=== PATIENT | female | born 1990 | race Caucasian/White ===

== ENCOUNTER 2021-11-29 10:26 | Outpatient (CLI) | payer BC, SELFPAY ==
[2021-11-29 10:45] VITALS: BP 128/93; PULSE 87
[2021-11-29 11:00] VITALS: BP 128/96; PULSE 78
[2021-11-29 11:29] LABS: Basophils Percent Auto 0.3 % (0.2-1.2); Eosinophils Absolute Auto 0.1 K/mm3 (0-0.3); Eosinophils Percent Auto 0.7 % (0-4.4); Hematocrit 35.4 % (37.0-47.0); Hemoglobin 11.1 g/dL (12.0-15.0); Immature Granulocyte Absolute 0.07 K/mm3 (0.00-0.031); Immature Granulocyte Percent A 0.6 % (0-0.5); Lymphocytes Absolute Auto 1.61 K/mm3 (0.9-3.2); Mean Corpuscular HGB Conc 31.4 g/dl (32-36); Mean Corpuscular Volume 79.7 fl (80-100); Mean Platelet Volume 10.3 fl (7.4-10.4); Monocytes Absolute Auto 0.8 K/mm3 (0.1-0.6); Monocytes Percent Auto 6.5 % (2.6-8.5); Neutrophils Absolute Auto 8.9 K/mm3 (1.3-6.7); Neutrophils Percent Auto 77.9 % (45.5-73.1); Platelet Count Result 284 k/mm3 (150-375); Red Blood Count 4.44 M/mm3 (4.2-5.4); Red Cell Distribution Width 13.6 % (11.5-14.5); White Blood Count 11.5 K/mm3 (4.5-10.0)
[2021-11-29 11:30] VITALS: BP 127/94; PULSE 86
[2021-11-29 11:31] LABS: Appearance Urine Clear (Clear); Bilirubin Urine Negative (Negative); Blood Urine Negative (Negative); Color Urine Yellow (Yellow); Glucose Urine UA Negative (Negative); Ketones Urine Negative (Negative); Leukocyte Esterase Ur Negative LEU/UL (NEGATIVE); Nitrate Urine Negative (Negative); Protein Urine Negative (Negative); Specific Grav Ur 1.015 (1.001-1.035); Urobilinogen Urine 0.2 mg/dL (<2.0)
[2021-11-29 11:34] LABS: Add Urine Microscopic? NO
[2021-11-29 11:40] LABS: Creatinine Urine 65.6 mg/dL; Total Protein Urine Random 15 mg/dL; Ur Ttl Prot Creatinine Ratio 0.23 mg/mg (0-0.20)
[2021-11-29 11:41] LABS: Alanine Aminotransferase 18 U/L (6-35); Albumin Level 3.6 g/dL (3.5-5.1); Alkaline Phosphatase 192 U/L (38-126); Anion Gap 8 mmol/L (8-16); Aspartate Amino Transferase 29 U/L (14-36); Bilirubin,Total 0.2 mg/dL (0.2-1.3); Blood Urea Nitrogen 12 mg/dL (7-17); Calcium 8.8 mg/dL (8.4-10.2); Carbon Dioxide 22 mmol/L (22-30); Chloride 102 mmol/L (98-107); Estimated Glomerular Filt Rate > 60; Glucose 90 mg/dL (65-110); Potassium 4.1 mmol/L (3.4-5.0); Sodium 132 mmol/L (137-145); Uric Acid 3.2 mg/dL (2.5-7.5)
[2021-11-29 11:45] VITALS: BP 128/90; PULSE 79
[2021-11-29 12:00] VITALS: BP 126/94; PULSE 85
--- NOTE | 2021-11-29 12:12 | PC.NURSE ---
Dr Pelletier notified of NST, lab results and BP's. OK to dc home and keep next appt.
[2021-11-29 12:14] VITALS: BP 128/93; PULSE 100
== END 2021-11-29 12:14 | disposition home or self-care (01) ==
LOC: ANHOBOP 10:32 → ANHOBPP 10:35
PROVIDERS: Visit Provider Obstetrics & Gynecology
DX: O13.9 Gestational [pregnancy-induced] hypertension without significant proteinuria, unspecified trimester (principal); Z3A.00 Weeks of gestation of pregnancy not specified
CPT/HCPCS: 36415; 59025; 80053; 81003; 82570; 84156; 84550; 85025; 87086; 99199

== ENCOUNTER 2021-12-05 07:30 | Inpatient (IN) | payer BC, SELFPAY ==
[2021-12-05] VITALS (102 sets, daily range): BP systolic 115–159; BP diastolic 67–125; PULSE 62–99; RESP 18; TEMP 36.6–37.5; O2SAT 75–100; BMI 30.6
--- NOTE | 2021-12-05 08:30 | LDADM ---
This patient, Nadine Ramirez, was admitted to Labor/Delivery/Recovery 106 on 12/05/21 at 07:30. Plans for labor, pain management and were discussed with patient. Patient/family oriented to hospital policies and general routines including ID bracelet, bed and alarms, visiting hours, pain management, procedures, bathroom and other care routines, personal items, smoking policy, room service/diet and guest tray routines, infant security routines, and visiting hours. Patient/Family are encouraged to report perceived risks to care and to ask questions if they do not understand what they are told or what they should do. See OBIX for further documentation.
[2021-12-05 08:53] LABS: Basophils Percent Auto 0.3 % (0.2-1.2); Eosinophils Absolute Auto 0.1 K/mm3 (0-0.3); Eosinophils Percent Auto 0.9 % (0-4.4); Hematocrit 37.7 % (37.0-47.0); Hemoglobin 11.8 g/dL (12.0-15.0); Immature Granulocyte Absolute 0.07 K/mm3 (0.00-0.031); Immature Granulocyte Percent A 0.6 % (0-0.5); Lymphocytes Absolute Auto 2.01 K/mm3 (0.9-3.2); Lymphocytes Percent Auto 16.4 % (18.3-44.2); Mean Corpuscular HGB Conc 31.3 g/dl (32-36); Mean Corpuscular Hemoglobin 24.7 pg (26-34); Mean Platelet Volume 10.8 fl (7.4-10.4); Monocytes Absolute Auto 0.9 K/mm3 (0.1-0.6); Monocytes Percent Auto 7.1 % (2.6-8.5); Neutrophils Absolute Auto 9.2 K/mm3 (1.3-6.7); Neutrophils Percent Auto 74.7 % (45.5-73.1); Platelet Count Result 295 k/mm3 (150-375); Red Blood Count 4.77 M/mm3 (4.2-5.4); White Blood Count 12.3 K/mm3 (4.5-10.0)
[2021-12-05] MEDS: OXYTOCIN 30 UNITS/NS 500 ML 30 UNITS/500 ML BAG 6 UNITS IV CONT (09:08)
[2021-12-05] MEDS: LACTATED RINGERS 1,000 ML 125 ML IV CONT ×2 (09:08→10:47)
[2021-12-05] MEDS: AMPICILLIN 2 GM/NS 100 ML 2 GM/100 ML BAG IVPB (09:08)
[2021-12-05 09:48] LABS: Alanine Aminotransferase 16 U/L (6-35); Albumin Level 3.6 g/dL (3.5-5.1); Alkaline Phosphatase 219 U/L (38-126); Anion Gap 9 mmol/L (8-16); Aspartate Amino Transferase 29 U/L (14-36); Bilirubin,Total 0.2 mg/dL (0.2-1.3); Blood Urea Nitrogen 8 mg/dL (7-17); Calcium 8.8 mg/dL (8.4-10.2); Carbon Dioxide 21 mmol/L (22-30); Chloride 102 mmol/L (98-107); Estimated CRCL calculation 117 ml/min; Estimated Glomerular Filt Rate > 60; Glucose 86 mg/dL (65-110); Potassium 3.8 mmol/L (3.4-5.0); Sodium 132 mmol/L (137-145); Uric Acid 3.6 mg/dL (2.5-7.5)
--- NOTE | 2021-12-05 10:30 | WPDOBADMIT ---
Obstetrics - Admit Note Admission Note: record reviewed. Additions to the history and/or subsequent changes in the physical findings follow. 31 y/o G1 at 38 5/7 weeks here with leakage of fluid. She is not sure, but thinks she has been leaking for 2-3 days. No fevers. Occasional contractions. GBS neg. Gross ROM noted on arrival to L&D. AVSS NST reactive TOCO: contractions irregularly ABD soft, nontender, gravid, vertex EXT nontender Cervix 4/100/0. AROM of forebag with return of clear fluid. A: IUP at term with prolonged ROM. P: Ampicillin. Augment labor with oxytocin. Anticipate .
--- NOTE | 2021-12-05 11:31 | WPDANESEPPF ---
Anes - Initial Pre Proc Eval Procedure: labor epidural Date/Time: 12/05/21 11:31 Surgeon: Pan Pelletier MD Pre Op Diagnosis: labor pain Pre Op Diagnosis: Labor Patient Data Age: 31 Gender: F Height: 1.63 m Weight: 81 kg Last Vital Signs Pulse 63 12/05/21 11:23 BP 147/96 H 12/05/21 11:23 Pulse Ox 98 12/05/21 11:28 O2 Del Method Room Air 12/05/21 08:29 Allergies Allergy/AdvReac Type Severity Reaction Status Date / Time No Known Allergies Allergy Verified 11/14/21 12:37 Home Medications Medication Instructions Recorded Confirmed Type fluoxetine 20 mg tablet 20 mg PO DAILY 11/14/21 12/05/21 History prenat.vits,jenni,[id number]-ieof-tfjbu 1 tablet PO DAILY 11/14/21 12/05/21 History Laboratory Tests 12/05/21 12/05/21 12/05/21 08:28 08:28 08:28 WBC 12.3 K/mm3 H K/mm3 (4.5-10.0) RBC 4.77 M/mm3 M/mm3 (4.2-5.4) Hgb 11.8 g/dL L g/dL (12.0-15.0) Hct 37.7 % % (37.0-47.0) MCV 79.0 fl L fl (80-100) MCH 24.7 pg L pg (26-34) MCHC 31.3 g/dl L g/dl (32-36) RDW 14.0 % % (11.5-14.5) Plt Count 295 k/mm3 k/mm3 (150-375) MPV 10.8 fl H fl (7.4-10.4) Immature Gran % (Auto) 0.6 % H % (0-0.5) Neut % (Auto) 74.7 % H % (45.5-73.1) Lymph % (Auto) 16.4 % L % (18.3-44.2) [place] % (Auto) 7.1 % % (2.6-8.5) Eos % (Auto) 0.9 % % (0-4.4) Baso % (Auto) 0.3 % % (0.2-1.2) Lymph # (Auto) 2.01 K/mm3 K/mm3 (0.9-3.2) [place] # (Auto) 0.9 K/mm3 H K/mm3 (0.1-0.6) Eos # (Auto) 0.1 K/mm3 K/mm3 (0-0.3) Baso # (Auto) 0.0 K/mm3 K/mm3 (0.0-0.1) Abs Immat Gran (auto) 0.07 K/mm3 H K/mm3 (0.00-0.031) Absolute Neuts (auto) 9.2 K/mm3 H K/mm3 (1.3-6.7) Absolute Nucleated RBC 0.0 K/mm3 K/mm3 (0.0-0.012) Nucleated RBC % 0.0 % % (0.0-0.2) Sodium Potassium Chloride Carbon Dioxide Anion Gap BUN Creatinine Estim Creat Clear Calc Estimated GFR Glucose Uric Acid Calcium Total Bilirubin AST ALT Alkaline Phosphatase Total Protein Albumin RPR Pending Blood Type AB Positive Antibody Screen Negative 12/05/21 08:28 WBC RBC Hgb Hct MCV MCH MCHC RDW Plt Count MPV Immature Gran % (Auto) Neut % (Auto) Lymph % (Auto) [place] % (Auto) Eos % (Auto) Baso % (Auto) Lymph # (Auto) [place] # (Auto) Eos # (Auto) Baso # (Auto) Abs Immat Gran (auto) Absolute Neuts (auto) Absolute Nucleated RBC Nucleated RBC % Sodium 132 mmol/L L mmol/L (137-145) Potassium 3.8 mmol/L mmol/L (3.4-5.0) Chloride 102 mmol/L mmol/L (98-107) Carbon Dioxide 21 mmol/L L mmol/L (22-30) Anion Gap 9 mmol/L mmol/L (8-16) BUN 8 mg/dL mg/dL (7-17) Creatinine 0.60 mg/dL L mg/dL (0.7-1.0) Estim Creat Clear Calc 117 ml/min ml/min Estimated GFR > 60 (59 - ) Glucose 86 mg/dL mg/dL (65-110) Uric Acid 3.6 mg/dL mg/dL (2.5-7.5) Calcium 8.8 mg/dL mg/dL (8.4-10.2) Total Bilirubin 0.2 mg/dL mg/dL (0.2-1.3) AST 29 U/L U/L (14-36) ALT 16 U/L U/L (6-35) Alkaline Phosphatase 219 U/L H U/L (38-126) Total Protein 7.0 g/dL g/dL (6.3-8.2) Albumin 3.6 g/dL g/dL (3.5-5.1) RPR Blood Type Antibody Screen Patient hx anesthesia problems: none Family hx anesthesia problems: none Results Review: All pre-operative results and documents have been reviewed as part of the pre-operative evaluation. [facility]
--- NOTE | 2021-12-05 13:00 | PM.OBPNLAB ---
Pain Control Date/time seen: 12/05/21 13:00 Comfortable with epidural. Augmenting labor with oxytocin. Receiving ampicillin. AVSS NST reactive TOCO: contractions every 2-4 min Cervix 8/100/+1 Continue labor.
[2021-12-05] MEDS: AMPICILLIN 1 GM/NS 50 ML 1 GM/50 ML BAG IVPB (13:09)
[2021-12-05 14:41] LABS: Rapid Plasma Reagin Non-Reactive (NonReactive)
--- NOTE | 2021-12-05 15:51 | PM.OBPRVD ---
OB - Delivery Note Procedure Delivery date: 12/05/21 Procedure: Induction method: None Delivery augmentation: Pitocin Delivery monitor: External FHT and External Uterine Route of delivery: Laceration Description: Perineal - 2nd Degree Delivery repair: vicryl (3-0) Specimen: Yes (cord blood) Quantitative Blood Loss (ml): 420 Anesthesia type: Epidural Disposition: PACU Complications: None Narrative: 31 y/o G1 at 38 5/7 weeks gestation who presented to the hospital with leakage of fluid for 2-3 days. SROM diagnosed. She received ampicillin and oxytocin intravenously. She received an epidural for pain control. Her labor progressed and her cervix dilated completely. She pushed with good effort and delivered the 's head to the perineum, followed by the body. The nose and mouth were bulb suctioned. After a delay, the cord was clamped and cut. The was handed off the field. Cord blood was collected. The placenta delivered spontaneously and was grossly normal in appearance. The usual 3 vessel cord was noted. A second degree midline perineal laceration was sustained. This was reapproximated using 3 0 Vicryl in the usual layered fashion. Excellent hemostasis resulted as did excellent reapproximation of the normal anatomy. Needle and instrument counts were correct. The patient was taken to recovery room in stable condition. The went to the nursery in stable condition. I was present and scrubbed for the entire delivery. Baby Date of : 12/05/21 Time of : 15:35 Weeks of gestation at delivery: 38 gender: Male Weight (pounds): 8 Weight (ounces): 2 presentation: vertex position: Left Occiput Anterior Placenta delivery description: Spontaneous score one minute: 8 score five minutes: 9
--- NOTE | 2021-12-05 15:51 | PM.OBDSVD ---
DS: Admitting Diagnosis Discharge Date 12/07/21 Admitting Diagnosis IUP at 38 5/7 weeks gestation Prolonged ROM DS: Discharge Diagnosis Discharge Diagnosis (1) (normal spontaneous vaginal delivery): Code(s): O80 - Encounter for full-term uncomplicated delivery Status: Acute (2) Prolonged rupture of membranes, delivered: Status: Acute OB - DS: Summary OB Procedures : None OB Procedures Intrapartum: Spontaneous Vag Delivery OB Procedures: : None Time Spent with Patient Time attestation: Total time spent providing and/or coordinating discharge services: DS: Data Data Completed and Pending Labs on day of discharge: Labs from last 24 hours 12/05/21 12/05/21 12/05/21 08:28 08:28 08:28 WBC RBC Hgb Hct MCV MCH MCHC RDW Plt Count MPV Immature Gran % (Auto) Neut % (Auto) Lymph % (Auto) [place] % (Auto) Eos % (Auto) Baso % (Auto) Lymph # (Auto) [place] # (Auto) Eos # (Auto) Baso # (Auto) Abs Immat Gran (auto) Absolute Neuts (auto) Absolute Nucleated RBC Nucleated RBC % Sodium 132 L Potassium 3.8 Chloride 102 Carbon Dioxide 21 L Anion Gap 9 BUN 8 Creatinine 0.60 L Estim Creat Clear Calc 117 Estimated GFR > 60 Glucose 86 Uric Acid 3.6 Calcium 8.8 Total Bilirubin 0.2 AST 29 ALT 16 Alkaline Phosphatase 219 H Total Protein 7.0 Albumin 3.6 RPR Non-reactive Blood Type AB Positive Antibody Screen Negative 12/05/21 08:28 WBC 12.3 H RBC 4.77 Hgb 11.8 L Hct 37.7 MCV 79.0 L MCH 24.7 L MCHC 31.3 L RDW 14.0 Plt Count 295 MPV 10.8 H Immature Gran % (Auto) 0.6 H Neut % (Auto) 74.7 H Lymph % (Auto) 16.4 L [place] % (Auto) 7.1 Eos % (Auto) 0.9 Baso % (Auto) 0.3 Lymph # (Auto) 2.01 [place] # (Auto) 0.9 H Eos # (Auto) 0.1 Baso # (Auto) 0.0 Abs Immat Gran (auto) 0.07 H Absolute Neuts (auto) 9.2 H Absolute Nucleated RBC 0.0 Nucleated RBC % 0.0 Sodium Potassium Chloride Carbon Dioxide Anion Gap BUN Creatinine Estim Creat Clear Calc Estimated GFR Glucose Uric Acid Calcium Total Bilirubin AST ALT Alkaline Phosphatase Total Protein Albumin RPR Blood Type Antibody Screen Discharge Plan Discharge Attending physician on discharge: Pan Pelletier Discharging Clinician: Pan Pelletier Patient Disposition: Home, Self-Care Activity: pelvic rest Diet: regular Discharge Instructions: Call or return if temperature above 100.4? F, increased abdominal pain, increased vaginal bleeding or any new problems. Stand Alone Forms: General Discharge Information Follow-up/Referrals: Pan Pelletier MD [Physician] - 6 Weeks Discharge Medications: New ibuprofen 600 mg tablet 600 mg PO Q6H PRN (Reason: cramps) Qty: 30 0RF hydrocodone-acetaminophen 5-325 mg tablet 1 tablet PO Q4H PRN (Reason: pain) Qty: 20 0RF ferrous sulfate 325 mg (65 mg iron) tablet 325 mg PO DAILY Qty: 30 0RF Continued fluoxetine 20 mg Tablet 20 mg PO DAILY #2 Tablet 1 tablet PO DAILY Date of admission: 12/05/21 07:30 Primary Care Provider: UNKNOWN,DOCTOR Admitting Provider: Pan Pelletier Attending physician on admission: Pan Pelletier Condition: Stable
[2021-12-05] MEDS: OXYTOCIN 30 UNITS/NS 500 ML 30 UNITS/500 ML BAG 125 UNITS IV CONT (16:08)
[2021-12-05] MEDS: IBUPROFEN 600 MG TABLET PO (19:47)
--- NOTE | 2021-12-05 20:16 | OBPPTRN ---
Patient transferred to post room #284 in wheelchair. Support person present. Oriented to unit, room, information board, rooming in, admission packet and security measures. Patient verbalizes understanding.
[2021-12-06] MEDS: ACETAMINOPHEN 325 MG TABLET 650 MG PO (03:00)
[2021-12-06] MEDS: IBUPROFEN 600 MG TABLET PO ×4 (03:01→23:03)
[2021-12-06 05:32] LABS: Hematocrit 30.1 % (37.0-47.0); Hemoglobin 9.6 g/dL (12.0-15.0)
[2021-12-06] MEDS: MULTIVIT/MIN/PREN/FOL AC/IRON TABLET 1 TAB PO (08:08)
[2021-12-06] MEDS: FLUoxetine HCL 20 MG CAPSULE PO (08:09)
[2021-12-06] MEDS: DOCUSATE SODIUM 100 MG CAPSULE PO ×2 (08:09→16:15)
[2021-12-06] MEDS: POLYSACCHARIDE IRON COMPLEX 150 MG CAPSULE PO ×2 (08:09→16:15)
[2021-12-06 08:15] VITALS: BP 124/87; PULSE 82; RESP 18; TEMP 36.6; O2SAT 99
--- NOTE | 2021-12-06 08:34 | PM.OBPNVD ---
OB - PN: Subj Subjective Date/time seen: 12/06/21 08:34 Narrative: Pain OK. Baby reportedly has a hypospadias, so we plan to hold off on circumcision. Peds has recommended urology consultation as an outpatient. OB - PN: Obj Data Labs CBC & Chem 7: 12/06/21 05:27 12/05/21 08:28 Labs: Laboratory Results - last 24 hr 12/05/21 12/05/21 12/05/21 08:28 08:28 08:28 WBC 12.3 H RBC 4.77 Hgb 11.8 L Hct 37.7 MCV 79.0 L MCH 24.7 L MCHC 31.3 L RDW 14.0 Plt Count 295 MPV 10.8 H Immature Gran % (Auto) 0.6 H Neut % (Auto) 74.7 H Lymph % (Auto) 16.4 L [place] % (Auto) 7.1 Eos % (Auto) 0.9 Baso % (Auto) 0.3 Lymph # (Auto) 2.01 [place] # (Auto) 0.9 H Eos # (Auto) 0.1 Baso # (Auto) 0.0 Abs Immat Gran (auto) 0.07 H Absolute Neuts (auto) 9.2 H Absolute Nucleated RBC 0.0 Nucleated RBC % 0.0 Sodium Potassium Chloride Carbon Dioxide Anion Gap BUN Creatinine Estim Creat Clear Calc Estimated GFR Glucose Uric Acid Calcium Total Bilirubin AST ALT Alkaline Phosphatase Total Protein Albumin RPR Non-reactive Blood Type AB Positive Antibody Screen Negative 12/05/21 12/06/21 08:28 05:27 WBC RBC Hgb 9.6 L Hct 30.1 L MCV MCH MCHC RDW Plt Count MPV Immature Gran % (Auto) Neut % (Auto) Lymph % (Auto) [place] % (Auto) Eos % (Auto) Baso % (Auto) Lymph # (Auto) [place] # (Auto) Eos # (Auto) Baso # (Auto) Abs Immat Gran (auto) Absolute Neuts (auto) Absolute Nucleated RBC Nucleated RBC % Sodium 132 L Potassium 3.8 Chloride 102 Carbon Dioxide 21 L Anion Gap 9 BUN 8 Creatinine 0.60 L Estim Creat Clear Calc 117 Estimated GFR > 60 Glucose 86 Uric Acid 3.6 Calcium 8.8 Total Bilirubin 0.2 AST 29 ALT 16 Alkaline Phosphatase 219 H Total Protein 7.0 Albumin 3.6 RPR Blood Type Antibody Screen OB - PN A/P Plan Comments: A: PPD#1, doing well. P: Routine care. Plan home tomorrow. Time Spent With Patient Time with patient: less than 15 minutes Exam Psych: Other: AVSS ABD soft, nontender, fundus firm EXT nontender
[2021-12-06] MEDS: HYDROcodone/acetaminophen (*CRX) 5-325 MG TABLET 1 TAB PO ×3 (09:01→19:44)
[2021-12-06 11:37] VITALS: BP 131/91; PULSE 90; RESP 16; TEMP 36.6; O2SAT 99
--- NOTE | 2021-12-06 14:27 | WPDANLDPN2 ---
Anes-Prog Note L&D Date/Time: 12/06/21 14:27 Comfortable throughout: labor and delivery Neuraxial method: epidural Epidural/Spinal procedure site: clean & non-tender Neuro status: Neuro function grossly intact. Cardiovascular status: normal Respiratory status: normal Airway patency: baseline Mental status: baseline Post-Op hydration status: normal Vital Signs: Last Vital Signs Temp 98 F 12/06/21 11:37 Pulse 90 12/06/21 11:37 Resp 16 12/06/21 11:37 BP 131/91 H 12/06/21 11:37 Pulse Ox 99 12/06/21 11:37 O2 Del Method Room Air 12/05/21 08:29 Pain score (VAS): 0/10 I/O: Intake & Output 12/05/21 12/06/21 12/06/21 23:59 07:59 15:59 Intake Total 2000 240 Output Total 883 Balance 1117 240 Post-procedural complaints: none Patient feedback: Patient satisfied with anesthetic care.
[2021-12-06 16:15] VITALS: BP 131/86; PULSE 81; RESP 16; TEMP 36.3; O2SAT 98
[2021-12-06 20:00] VITALS: BP 138/97; PULSE 82; RESP 16; TEMP 36.4; O2SAT 98
[2021-12-07] VITALS: BP 129/96; PULSE 82; RESP 16; TEMP 36.9; O2SAT 98
[2021-12-07 04:15] VITALS: BP 134/90; PULSE 71; RESP 14; TEMP 36.8; O2SAT 100
[2021-12-07 07:45] VITALS: BP 142/93; PULSE 81; RESP 16; TEMP 36.9; O2SAT 99
[2021-12-07] MEDS: WITCH HAZEL 40 PADS 1 PAD TOPICAL (07:48)
[2021-12-07] MEDS: LANOLIN (LANSINOH) 7.5 GM CREAM 1 APPLIC TOPICAL (07:48)
[2021-12-07] MEDS: HYDROcodone/acetaminophen (*CRX) 5-325 MG TABLET 1 TAB PO ×2 (07:49→12:46)
[2021-12-07] MEDS: MULTIVIT/MIN/PREN/FOL AC/IRON TABLET 1 TAB PO (07:49)
[2021-12-07] MEDS: POLYSACCHARIDE IRON COMPLEX 150 MG CAPSULE PO (07:49)
[2021-12-07] MEDS: FLUoxetine HCL 20 MG CAPSULE PO (07:49)
[2021-12-07] MEDS: DOCUSATE SODIUM 100 MG CAPSULE PO (07:49)
--- NOTE | 2021-12-07 08:40 | PM.OBPNVD ---
OB - PN: Subj Subjective Date/time seen: 12/07/21 08:40 Narrative: Pain OK. Would like to go home. OB - PN: Obj Data Labs CBC & Chem 7: 12/06/21 05:27 12/05/21 08:28 OB - PN A/P Plan Comments: A: PPD#2, doing well. P: Home to f/u 6 weeks. Exam Psych: Other: AVSS ABD soft, nontender, fundus firm EXT nontender
--- NOTE | 2021-12-07 13:26 | PC.NURSE ---
[id number] Introductions were made, then consulted with patient to assess needs related to . Mother led the conversation with her?plans to feed?her infant and the?experience so far. Resources provided for inpatient and outpatient services using a resource guide. Pt received the offer of assistance. Mother works well with her infant with encouragement and education. Encouraged understanding of the benefits of skin to skin (unwrapping and placing vertically on her chest), responsive feeding and how to watch for early feeding signs, frequency of feeding on demand about every 8-12 times in 24 hours (every 2-3 hours), milk production, duration of feeding, signs of adequate intake/output and how to record on the feeding sheet. Reviewed positioning and ear, shoulder, hip alignment, supporting the breast, asymmetrical latch (off-center), and leading with the chin with a big open side gape. latched optimally to the left breast in cross cradle position. Education given to mother of how to visualize suck/swallow ratios and drinking at the breast. Infant was able to maintain latch without discomfort to mother. Nipple care reviewed with optimal latch and good positioning. Reviewed hand expression, preventing engorgement, good handwashing when or touching the breast/nipples to prevent infection. Mother is feeding appropriately for growth of infant and understands stimulating to eat if needed. has had appropriate feedings in the last 24 hours meets the outcomes for weight, output and jaundice at this time. Mother states she is confident to continue effectively breastfeed her at home, when to call for assistance. Reinforced understanding of milk production, transition of milk, signs of adequate intake, prevention/relief of engorgement, responsive after visualizing feeding cues, the different methods of stimulating infant to breastfeed 2-3 hours after the start of the last feeding, community resources, medication information reviewed per [employer] and when to call a provider using the resource of the mom and baby guide/[facility] website. Mother voiced understanding of the education shared. Resources used to facilitate learning were used with the visual handouts/ tool/mom and baby guide. Mother voiced understanding of responsive feedings, stimulating with skin to skin, hand expressed colostrum, touch, talking to to encourage if it has been 2 -3 hours since the start of the last , to call if infant does not latch or there is discomfort with . Reported to the primary RN.
[2021-12-08 10:19] VITALS: BP 140/97; PULSE 88; RESP 20; TEMP 36.7; O2SAT 99
== END 2021-12-07 13:30 | disposition home or self-care (01) | DRG 807 ==
LOC: ANHLDR 18:56 → ANHOB2 19:35
PROVIDERS: Admitting Provider Obstetrics & Gynecology; Visit Provider Obstetrics & Gynecology
DX: O42.92 Full-term premature rupture of membranes, unspecified as to length of time between rupture and onset of labor (principal); Z37.0 Single live birth; Z3A.38 38 weeks gestation of pregnancy; O71.82 Other specified trauma to perineum and vulva; O70.1 Second degree perineal laceration during delivery; O13.4 Gestational [pregnancy-induced] hypertension without significant proteinuria, complicating childbirth; O76 Abnormality in fetal heart rate and rhythm complicating labor and delivery
CPT/HCPCS: 36415; 80053; 84112; 84550; 85014; 85018; 85025; 86592; 86850; 86900; 86901; A9270; J0290; J2590; J2795; J7120

== ENCOUNTER 2023-03-01 13:32 | Emergency (ER) | payer BC, SELFPAY ==
--- NOTE | ~2023-03-01 | CT_ITS ---
. EXAMINATION: CT abdomen pelvis w con DATE: 03/01/2023 14:24 INDICATION: Right upper and lower quadrant abdominal pain TECHNIQUE: Computed tomography (CT) of the abdomen and pelvis was performed with 100 CC Omnipaque 350 intravenous contrast. Automated exposure control and iterative reconstruction technique were employe d. Exam dose: 315.58 mGy-cm total exam DLP. COMPARISON: None. FINDINGS: The lung bases are clear of infiltrate or consolidation. Heart size is within normal limits . No pericardial or pleural effusion. Small right hepatic cyst. The liver, gallbladder, bile ducts, spleen, pancreas and pancreatic duct ar e otherwise unremarkable. Normal morphology of the adrenal glands. 1.5 cm lower pole right renal cyst. The kidneys are otherwise unremarkable. Approximately 1.4 x 2.1 cm peripherally enhancing corpus luteum cyst with mild adnexal and right post erior cul-de-sac free fluid. Differential diagnosis includes ruptured ovarian cyst, less likely ectop ic gestation or pelvic inflammatory disease. Retroverted uterus. The uterus and left adnexal area are otherwise unremarkable. Normal appendix. Soft tissue stranding surrounding a diverticulum of the very proximal transverse colon suggests diver ticulitis diverticulitis, likely responsible for the complaints of right upper quadrant pain. No bowel obstruction or intraperitoneal free air is detected. The urinary bladder is unremarkable. Normal caliber of the abdominal aorta. No intraperitoneal or retroperitoneal or pelvic mass lesion or adenopathy. Included skeletal structures are unremarkable. IMPRESSION: Focal diverticulitis, proximal transverse colon, likely accounting for right upper quadra nt abdominal pain Probable ruptured right ovarian corpus luteum cyst with mild right adnexal and posterior cul-de-sac f luid, likely responsible for the right lower quadrant pain Retroverted uterus Small right hepatic cyst Reviewed, dictated and finalized at [facility]. Reviewed, dictated and finalized at location [facility]. IMPRESSION: Focal diverticulitis, proximal transverse colon, likely accounting for right upper quadrant abdominal pain Probable ruptured right ovarian corpus luteum cyst with mild right adnexal and posterior cul-de-sac fluid, likely responsible for the right lower quadrant martita n Retroverted uterus Small right hepatic cyst
[2023-03-01 13:33] VITALS: BP 125/76; PULSE 71; RESP 18; TEMP 36.6; O2SAT 100
--- NOTE | 2023-03-01 13:53 | ED.ABDPAIN ---
HPI - Abdominal Pain General Chief Complaint: Abdominal Pain Stated Complaint: abdominal pain Time Seen by Provider: 03/01/23 13:36 History of Present Illness HPI narrative: 32-year-old female reports for evaluation for sudden onset right sided abdominal pain at 0400 today. Patient describes the pain as sharp and states it gets better or worse with position changes. She reports multiple episodes of diarrhea and 1 episode of emesis this morning. She was able to tolerate her oatmeal for breakfast without difficulty. She denies fever, chest pain or shortness of breath, dysuria or hematuria, vaginal bleeding, vaginal discharge or concern for STDs. LMP approximately 15 days ago. Denies history of abdominal surgeries. Related Data Home Medications Medication Instructions Recorded Confirmed fluoxetine 20 mg tablet 20 mg PO DAILY 11/14/21 12/05/21 prenat.vits,jenni,jrm-qimo-[id number] 1 tablet PO DAILY 11/14/21 12/05/21 Allergies Allergy/AdvReac Type Severity Reaction Status Date / Time No Known Allergies Allergy Verified 03/01/23 13:33 Review of Systems Review of Systems: CONSTITUTIONAL: Denies fever, chills EYES: Denies visual changes, redness, or discharge. ENT: Denies rhinorrhea, congestion, sore throat, or otalgia. CARDIOVASCULAR: Denies chest pain, palpitations, or edema. RESPIRATORY: Denies cough or dyspnea. GASTROINTESTINAL: See HPI GENITOURINARY: Denies dysuria or hematuria. SKIN: Denies rash or itching. MUSCULOSKELETAL: Denies back pain, joint pain, or myalgia. NEUROLOGIC: Denies headache, numbness, dizziness, or weakness. PSYCHIATRIC: Denies anxiety or depression. [facility] Past Medical History Medical History PIH ( induced hypertension) Family History Family History Grandparent Diabetes mellitus Social History Social History Smoking status: Never smoker Substance use: never Spiritual care concerns: No Exam Narrative: GENERAL: Well-appearing, in no acute distress. Patient resting comfortably in exam bed. She is pleasant and conversational HEAD: Normocephalic EYES: PERRLA ENT: Nares clear. Mucous membranes moist. Oropharynx without tonsillar hypertrophy exudate or other lesions. NECK: Supple. CHEST: No respiratory distress. Clear to auscultation, no adventitious breath sounds. HEART: Regular rate and rhythm. No murmur heard. Normal peripheral pulses. ABDOMEN: Normal active bowel sounds. Abdomen soft with tenderness in the right lower quadrant and right upper quadrant. Negative Massey's. Positive McBurney's. No overlying skin changes. Positive psoas sign. EXTREMITIES: Normal range of motion. No edema. SKIN: Warm, dry, no rash. NEURO: No focal deficits. Alert and oriented x3. PSYCH: Normal mood and affect. Course Vital Signs Vital signs: Vital Signs Temperature 97.8 F 03/01/23 13:33 Pulse Rate 71 03/01/23 13:33 Respiratory Rate 18 03/01/23 13:33 Blood Pressure 125/76 03/01/23 13:33 Pulse Oximetry 100 03/01/23 13:33 Oxygen Delivery Room Air 03/01/23 13:33 Temperature 97.8 F 03/01/23 13:33 Pulse Rate 71 03/01/23 14:35 Respiratory Rate 18 03/01/23 14:35 Blood Pressure 124/84 03/01/23 14:35 Pulse Oximetry 98 03/01/23 14:35 Oxygen Delivery Room Air 03/01/23 13:33 MDM - Abdominal Pain MDM Narrative Medical decision making narrative: 32-year-old female reports for evaluation for sudden onset sharp right-sided abdominal pain since 0400 this morning. See HPI for further history. Vitals are stable and she is afebrile. She is largely well-appearing on exam. Exam significant for the above. Labs significant for leukocytosis of 15. No bandemia. Chemistries unremarkable. Urinalysis unremarkable. negative. Lipase normal. Lactic 0.7. CT abdomen
[2023-03-01 13:57] LABS: Basophils Absolute Auto 0.1 K/mm3 (0.0-0.1); Basophils Percent Auto 0.3 % (0.2-1.2); Eosinophils Absolute Auto 0.1 K/mm3 (0-0.3); Eosinophils Percent Auto 0.9 % (0-4.4); Hematocrit 39.6 % (37.0-47.0); Immature Granulocyte Absolute 0.06 K/mm3 (0.00-0.031); Immature Granulocyte Percent A 0.4 % (0-0.5); Lymphocytes Absolute Auto 1.98 K/mm3 (0.9-3.2); Lymphocytes Percent Auto 13.2 % (18.3-44.2); Mean Corpuscular HGB Conc 32.8 g/dl (32-36); Mean Corpuscular Hemoglobin 29.7 pg (26-34); Mean Corpuscular Volume 90.6 fl (80-100); Mean Platelet Volume 9.8 fl (7.4-10.4); Monocytes Absolute Auto 1.1 K/mm3 (0.1-0.6); Monocytes Percent Auto 7.5 % (2.6-8.5); Neutrophils Absolute Auto 11.6 K/mm3 (1.3-6.7); Neutrophils Percent Auto 77.7 % (45.5-73.1); Platelet Count Result 314 k/mm3 (150-375); Red Blood Count 4.37 M/mm3 (4.2-5.4)
[2023-03-01 13:59] LABS: Appearance Urine Clear (Clear); Bilirubin Urine Negative (Negative); Blood Urine Negative (Negative); Color Urine Yellow (Yellow); Glucose Urine UA Negative (Negative); Ketones Urine Negative (Negative); Leukocyte Esterase Ur Negative LEU/UL (Negative); Nitrate Urine Negative (Negative); Protein Urine Negative (Negative); Specific Grav Ur 1.015 (1.001-1.035); Urobilinogen Urine 0.2 mg/dL (<2.0); pH Urine 7.5 (5.0-9.0)
[2023-03-01 14:07] LABS: Alanine Aminotransferase 15 U/L (6-35); Albumin Level 4.7 g/dL (3.5-5.1); Alkaline Phosphatase 44 U/L (38-126); Anion Gap 8 mmol/L (8-16); Aspartate Amino Transferase 27 U/L (14-36); Bilirubin,Total 0.6 mg/dL (0.2-1.3); Blood Urea Nitrogen 13 mg/dL (7-17); Calcium 9.2 mg/dL (8.4-10.2); Carbon Dioxide 26 mmol/L (22-30); Chloride 101 mmol/L (98-107); Estimated CRCL calculation 84 ml/min; Estimated Glomerular Filt Rate > 60; Glucose 90 mg/dL (65-110); Lipase 134 U/L (23-300); Sodium 135 mmol/L (137-145)
[2023-03-01] MEDS: SODIUM CHLORIDE 0.9% IV 1,000 ML 999 ML IV CONT (14:12)
[2023-03-01] MEDS: KETOROLAC 30 MG/ML VIAL (*BKC) IV PUSH (14:12)
[2023-03-01] MEDS: ONDANSETRON INJ 4 MG/2 ML VIAL IV PUSH (14:12)
[2023-03-01 14:14] LABS: Add Urine Microscopic? NO
[2023-03-01 14:17] LABS: Lactic Acid Reflex 0.7 mmol/L (0.7-2.0)
[2023-03-01 14:35] VITALS: BP 124/84; PULSE 71; RESP 18; O2SAT 98
[2023-03-01] MEDS: AMOXICILLIN/CLAVULANATE K 875-125 MG TAB 1 TABLET PO (16:20)
[2023-03-01] MEDS: MORPHINE SULFATE (*CRX) 4 MG/ML INJ IV PUSH (16:20)
[2023-03-01 16:24] VITALS: BP 144/95; PULSE 75; RESP 18; O2SAT 100
== END 2023-03-01 16:35 | disposition home or self-care (01) ==
PROVIDERS: Family Medicine; Emergency Provider Physician Assistant
DX: K57.32 Diverticulitis of large intestine without perforation or abscess without bleeding (principal); N83.201 Unspecified ovarian cyst, right side
CPT/HCPCS: 36415; 74177; 80053; 81003; 81025; 83605; 83690; 85025; 96361; 96374; 96375; 99284; A9270; J1885; J2270; J2405; J7030; Q9967

== ENCOUNTER 2023-07-18 03:38 | Day surgery (SDC) | payer BC, SELFPAY ==
[2023-07-17 11:35] VITALS: BMI 24.3
--- NOTE | 2023-07-17 11:38 | PC.NURSE ---
Report to the Outpatient Waiting Room, entrance under the green pavilion located off [facility], at time 1330 on date 07/18/23. Planned Procedure Time: 1530. Time changes happen often and if your time is changed the preop area will call you the afternoon before. - You and your visitor will be asked to self-screen and do not enter if you have any COVID symptoms. - A mask is optional within the hospital at this time. Patients may have clear liquids (water, carbonated beverages, clear teas, apple juice) until 3 hours prior to surgery with a maximum of 20 ounces. - No food from midnight until time of surgery Take the following medications with a SIP of water the morning of surgery: NIFEDIPINE, FLUOXETINE DO NOT STOP ANY OF YOUR OTHER PRESCRIPTION MEDICATIONS PRIOR TO SURGERY ?EXCEPT THE FOLLOWING Medications to discontinue per physician: N/A Date to take last dose: N/A Please no make-up, nail syriac, hairspray, perfume, deodorant, or body powder the day of surgery. No jewelry (including any body piercings) or valuables the day of surgery, leave them at home. Please take a shower or bath the night before, or the morning of, surgery with an antibacterial soap. Wear comfortable, loose fitting clothing. - Jewelry must be removed prior to entering the operating room. Rings and piercings that are not removed may be cut off. - The hospital will not accept responsibility for valuables. - Please leave all valuables, including medications, at home the day of surgery. If you are going home after surgery, a licensed public transit bus driver must drive you home. - NO public transportation without another adult if you receive anesthesia. - We recommend that an adult stay with you for 24 hours following discharge. - We also recommend that you do not drive, make important decision, drink alcoholic beverages, or take any drugs that were not prescribed by your health care provider for at least 24 hours after your discharge time. Follow any additional instructions given to you from your surgeon. If you or anyone in your household have experienced Covid symptoms in the past week, please notify your surgeon or the nurse liaison at the phone number below for possible testing. Telephone instructions given to JAD ROBLES and asked if any additional questions and then verbalized understanding. Patient advised to call surgeon office or pre surgery nurse liaison [phone] if any additional questions.
--- NOTE | 2023-07-18 12:15 | PM.IMHP ---
H&P: HPI History of Present Illness Date/Time: 07/18/23 12:15 Chief Complaint: Miscarriage. Narrative: 33 y/o who presented to the office yesterday at 10w4d gestation based on LMP for a new OB visit. Ultrasound exam showed an embryo measuring only 8w3d, with no cardiac motion. She has no vaginal bleeding or pain. Blood type is ABpos. She desires surgical management of her miscarriage. Review of Systems Review of Systems: All systems reviewed & are unremarkable except as noted in HPI and below PMFSH Past Medical History Medical History PIH ( induced hypertension) Family History Family History Grandparent Diabetes mellitus Social History Social History Smoking status: Never smoker Alcohol intake: current Alcohol use details: RARE PRE- Substance use: current Substance use type: marijuana Other substance usage details: PRE- Living arrangements: with family Spiritual care concerns: No Meds Home Medications and Allergies Home Medications Medication Instructions Recorded Confirmed Type fluoxetine 40 mg capsule 40 mg PO DAILY 07/17/23 07/17/23 History nifedipine 30 mg tablet,extended 30 mg PO DAILY 07/17/23 07/17/23 History release Allergies Allergy/AdvReac Type Severity Reaction Status Date / Time No Known Allergies Allergy Verified 07/17/23 11:33 Exam Const: Orientation/consciousness: patient oriented x3 Other: Well-developed, well-nourished female in no acute distress. Neck: Thyroid: thyroid normal Lymphatic: no lymphadenopathy noted (in neck, axilla or inguinal nodes) Resp: Effort & Inspection: normal respiratory effort Auscultation: clear to auscultation bilaterally Cardio: Rate: regular rate Rhythm: regular rhythm Heart sounds: S1 normal heart sound present and S2 normal heart sound present GI: Other: ABD: Soft, nontender, nondistended. No guarding or rebound tenderness. No hepatosplenomegaly. : General: Yes no CVA tenderness Other: External genitalia: normal female hair distribution, without lesion. Urethral meatus: no lesion, non prolapsed. Bladder: no mass, nontender Vagina: well-estrogenized, without lesion or discharge. No cystocele or rectocele. Cervix: no lesion or discharge. Uterus: small, anteverted, freely mobile, nontender Adnexa: no mass or tenderness. Anus/perineum: no lesions, nontender Back/Spine/Pelvis: Back: no CVA tenderness Skin: General skin exam: normal color and no rashes or lesions noted Neuro: General: patient oriented x3 Extrem: Other: Extremities: nontender with no edema Psych: Mental Status: mental status grossly normal Affect: normal affect Assessment and Plan Assessment and plan (1) Missed : Code(s): O02.1 - Missed Status: Acute Assessment and Plan: A: Missed SAB. P: Offered observation vs. surgical management. She prefers the latter. Specifically, I have offered her a dilation and suction curettage. She understands risks of surgery to include risks of anesthesia, risks of pain, infection, bleeding, blood products, thromboembolic phenomena and damage to adjacent structures such as bowel, bladder, ureters, blood vessels and nerves. She understands all these risks and elects to proceed with surgery.
[2023-07-18] MEDS: LACTATED RINGERS 1,000 ML 30 ML IV CONT (13:58)
--- NOTE | 2023-07-18 14:10 | WPDHPUPDATE1 ---
History and Physical Update Update Date/Time: 07/18/23 14:10 History and Physical has been reviewed, including an updated exam of the patient. There are NO changes in the patient's condition. Risks, benefits, and alternatives have been discussed and questions answered. Patient agrees to proceed with procedure.
[2023-07-18 14:11] VITALS: BP 115/72; PULSE 67; RESP 18; TEMP 36.9
--- NOTE | 2023-07-18 14:59 | WPDANESEPPF ---
Anes - Initial Pre Proc Eval Procedure: Operation Date: 07/18/23 15:30 Proposed Procedures p Suction Dilatation and Curettage - Pan Pelletier MD Date/Time: 07/18/23 14:59 Surgeon: Pan Pelletier MD Pre Op Diagnosis: missed ab Patient Data Age: 33 Gender: F Height: 1.63 m Weight: 65 kg Last Vital Signs Temp 36.9 C 07/18/23 14:11 Pulse 67 07/18/23 14:11 Resp 18 07/18/23 14:11 BP 115/72 07/18/23 14:11 O2 Del Method Room Air 07/18/23 14:11 Allergies Allergy/AdvReac Type Severity Reaction Status Date / Time No Known Allergies Allergy Verified 07/18/23 13:44 Home Medications Medication Instructions Recorded Confirmed Type fluoxetine 40 mg capsule 40 mg PO DAILY 07/17/23 07/17/23 History nifedipine 30 mg tablet,extended 30 mg PO DAILY 07/17/23 07/17/23 History release hydrocodone 5 mg-acetaminophen 325 1 - 2 tablet PO Q6H PRN pain #20 07/18/23 Rx mg tablet tabs Patient hx anesthesia problems: none Family hx anesthesia problems: none Results Review: All pre-operative results and documents have been reviewed as part of the pre-operative evaluation. FOR[facility]LY [facility], [facility] Past Medical History Medical History Chronic hypertension PIH ( induced hypertension) Family History Family History Grandparent Diabetes mellitus Social History Social History Smoking status: Never smoker Alcohol intake: current Alcohol use details: RARE PRE- Substance use: current Substance use type: marijuana Other substance usage details: PRE- Living arrangements: with family Spiritual care concerns: No Anes - Eval Final PreProcedure Day of Procedure 07/18/23 14:59 Patient weight: normal Heart: regular rate and rhythm Lungs: clear to auscultation Airway: Mallampati scale class II Neurological: alert and oriented Last oral intake: >/= 8 hours ASA classification: II Emergent: no Anesthetic plan: proceed Anesthesia type and monitoring: general GIVS and standard monitoring Results Review: All pre-operative results and documents have been reviewed as part of the pre-operative evaluation. Informed Consent: The patient's anesthetic plan and its attendant risks and benefits were discussed with the patient/family/POA. Questions were solicited and answers provided to the satisfaction of the patient/family/POA.
[2023-07-18] MEDS: ACETAMINOPHEN 500 MG TABLET 1000 MG PO (15:10)
[2023-07-18] MEDS: LIDOCAINE HCL 1% LOCAL INJ 20 ML VIAL 10 ML INFILTRATE (15:47)
--- NOTE | 2023-07-18 15:55 | W.PM.PROC2 ---
Procedure Note - Detailed Date of Procedure 07/18/23 Pre-op Diagnosis Missed SAB Post-op Diagnosis Same Procedure Performed Dilation and suction curettage Surgeon Pan Pelletier MD Anesthesia MAC and Local (1% lidocaine) Findings POC noted Description of Procedure The patient was taken to the operating room where she was prepared and draped in the usual sterile fashion in the dorsal lithotomy position. The bladder was drained with a red rubber catheter. A sterile speculum was placed into the vagina. The anterior lip of the cervix was grasped with a single-tooth tenaculum. Ten mL of 1% lidocaine was administered in a paracervical block. The cervix was gently dilated using Hegar dilators until an 8mm dilator could be passed. The 8mm curved tip suction curette was advanced. Suction curettage was performed and products of conception were aspirated. Sharp curettage was then performed until a good uterine cry was noted. A final pass with the suction curette was made. The tenaculum was removed. Hemostasis was excellent. Sponge, lap, needle and instrument counts were correct. The patient was taken to the recovery room in stable condition. I was present and scrubbed for the entire procedure. Estimated Blood Loss 50 Drains No Packing No Pathology Yes (Endometrial curettings) Complications None Condition Stable Disposition PACU
[2023-07-18 15:56] VITALS: BP 130/87; PULSE 80; RESP 12; O2SAT 100
[2023-07-18] MEDS: oxyCODONE HCL (*CRX) 5 MG TAB IR PO (16:15)
[2023-07-18 16:25] VITALS: BP 118/74; PULSE 80; RESP 12
[2023-07-18 16:50] VITALS: BP 120/75; PULSE 75; RESP 20
== END 2023-07-18 16:58 | disposition home or self-care (01) ==
PROVIDERS: PCP Family Medicine; Visit Provider Obstetrics & Gynecology
PROC: (CPT 59820; principal; 2023-07-18 15:30)
DX: O02.1 Missed abortion (principal); I10 Essential (primary) hypertension
CPT/HCPCS: 59820; 88305; A9270; J2250; J2704; J3010; J7120

== ENCOUNTER 2024-11-13 14:16 | Outpatient (CLI) | payer BC, SELFPAY ==
--- NOTE | ~2024-11-13 | US_ITS ---
EXAMINATION: US OB follow up DATE: 11/13/2024 14:38 INDICATION: Bilateral choroid plexus cysts seen on prior outside ultrasound. TECHNIQUE: Real-time transabdominal obstetric ultrasound. FINDINGS: No prior studies for comparison. There is a single living fetus in vertex presentation. The placenta is posterior without placenta pr evia. Placental margin to the cervix is 3.5 cm. Amniotic fluid index is normal measuring 11.6 cm. cardiac activity and movement is noted with a heart rate of 122 beats per minute. T he amniotic fluid volume is normal. Limited survey demonstrates normal choroid plexus without evidenc e for cysts. The following biometric data were obtained: BPD: 66mm corresponds to gestational age 26 weeks 5 days. Head circumference: 242mm corresponds to gestational age 26 weeks 2 days. Abdominal circumference: 218mm corresponds to gestational age 26 weeks 2 days. Femur length: 49mm corresponds to gestational age 26 weeks 3 days. Estimated weight: 925grams +/- 139grams.] IMPRESSION: 1. Single living intrauterine in vertex presentation with an estimated gestational age of 26 weeks 3 days by current ultrasound. 2. Low-lying posterior placenta measuring 3.5 cm to the cervix. 3: Unremarkable limited survey demonstrates no evidence for choroid plexus cyst. 4: Normal LINA measures 11.6 cm. Reviewed, dictated and finalized at location A. IMPRESSION: 1. Single living intrauterine in vertex presentation with an estimat ed gestational age of 26 weeks 3 days by current ultrasound. 2. Low-lying posterior placenta measuring 3.5 cm to the cervix. 3: Unremarkable limited survey demonstrates no evidence for choroid plexus cyst . 4: Normal LINA measures 11.6 cm.
== END 2024-11-13 14:17 | disposition home or self-care (01) ==
PROVIDERS: PCP Obstetrics & Gynecology; Visit Provider Obstetrics & Gynecology
DX: O28.3 Abnormal ultrasonic finding on antenatal screening of mother (principal); Z3A.00 Weeks of gestation of pregnancy not specified
CPT/HCPCS: 76816

== ENCOUNTER 2024-12-23 14:22 | Outpatient (CLI) | payer BC, SELFPAY ==
--- NOTE | ~2024-12-23 | US_ITS ---
EXAMINATION: US OB follow up DATE: 12/23/2024 14:39 INDICATION: Excessive growth TECHNIQUE: Real-time transabdominal obstetric ultrasound. FINDINGS: Comparison ultrasound dated 11/13/2024 There is a single living fetus in vertex presentation. The placenta is fundal/posterior without placenta previa. cardiac activity and movement is noted with a heart rate of 143 beats per minute. The amniotic fluid index is normal measuring 11.1. The following biometric data were obtained: BPD: 81mm corresponds to gestational age 32 weeks 3 days. Head circumference: 292mm corresponds to gestational age 32 weeks 1 days. Abdominal circumference: 288mm corresponds to gestational age 32 weeks 6 days. Femur length: 61mm corresponds to gestational age 31 weeks 4 days. Estimated weight: 1965grams +/- 295grams, 61.5%. IMPRESSION: 1. Single living intrauterine in vertex presentation with an estimated gestational age of 31 weeks 5 days. Appropriate interval growth. 2. Normal placenta. Reviewed, dictated and finalized at location O. IMPRESSION: 1. Single living intrauterine in vertex presentation with an estimat ed gestational age of 31 weeks 5 days. Appropriate interval growth. 2. Normal placenta.
== END 2024-12-23 14:23 | disposition home or self-care (01) ==
LOC: MICIMG 14:23
PROVIDERS: PCP Obstetrics & Gynecology; Visit Provider Obstetrics & Gynecology
DX: O36.60X0 Maternal care for excessive fetal growth, unspecified trimester, not applicable or unspecified (principal); Z3A.00 Weeks of gestation of pregnancy not specified
CPT/HCPCS: 76816

== ENCOUNTER 2025-01-16 13:45 | Outpatient (CLI) | payer BC, SELFPAY ==
--- OUTSIDE RECORDS SUMMARY | 2025-01-16 13:47 | XMS_ITS | Clinical Summary ---
Author Organization [facility] Address [address] [place] [id number] Care Team Providers Care Kitchen Worker Name Role Phone Sade Munoz MD Primary Care Provider [phone] Social History Tobacco Use Types Packs/Day Years Used Date Smoking Tobacco: Never Assessed Comments Unknown Sex and Gender Information Value Date Recorded Sex Assigned at Not on file Legal Sex Female 12:05 PM CDT Gender Identity Not on file Sexual Orientation Not on file Plan of Treatment Health Maintenance Due Date Last Done Comments Cervical Cancer Screening Pa p Smear (Age 30 to 64) Every 3 Years 1988 Annual Physical 1991 Hepatitis C 2006 DTaP, Tdap and Td Vaccines ( 1 - Tdap) 2007 Hepatitis B Vaccines (1 of 3 - 19+ 3-dose series) 2007 HPV Vaccines (1 - 3-dose SCD M series) 2015 Cervical Cancer Screening Pa p with HPV Testing (Age 30 to 64) Every 5 Years 2018 Cervical Cancer Screening with HPV 2018 PHQ-2 (Physician Roper) 04/30/2024 COVID-19 Vaccine (2023-2 5 season) 2024 Meningococcal B Vaccine Aged Out No l onger eligible based on patient's age to complete this topic Meningococcal Vaccine Aged Out No karen ottoniel eligible based on patient's age to complete this topic Pneumococcal Vaccine: Pediat rics (0 to 5 Years) and At-Risk Patients (6 to 49 Years) Aged Out No longer eligible b ased on patient's age to complete this topic RSV Immunizations Under 20 Months Aged Out No longer eligible based on patient's age to complete this topic Insurance Care Teams Kitchen Worker Relationship Specialty Start Date End Date Sade Munoz MD [address] [place] [address] [place] [id number] PCP - General FAMILY PRACTICE 09/14/23
[2025-01-16 14:10] LABS: Hematocrit 32.2 % (37.0-47.0); Hemoglobin 10.0 g/dL (12.0-15.0); Immature Granulocyte Percent A 0.8 % (0-0.5); Lymphocytes Absolute Auto 2.55 K/mm3 (0.9-3.2); Mean Corpuscular HGB Conc 31.1 g/dl (32-36); Mean Corpuscular Hemoglobin 24.3 pg (26-34); Mean Corpuscular Volume 78.2 fl (80-100); Nucleated Red Blood Cells Absolute Auto 0.000 K/mm3 (0.0-0.012); Nucleated Red Blood Cells Perc 0.0 % (0.0-0.2); Platelet Count Result 334 k/mm3 (150-375); Red Blood Count 4.12 M/mm3 (4.2-5.4); White Blood Count 13.0 K/mm3 (4.5-10.0)
[2025-01-16 14:23] LABS: Total Protein Urine Random 14 mg/dL; Ur Ttl Prot Creatinine Ratio 0.32 mg/mg (0-0.20)
[2025-01-16 14:32] LABS: Alanine Aminotransferase 14 U/L (6-35); Albumin Level 3.6 g/dL (3.5-5.1); Alkaline Phosphatase 182 U/L (38-126); Anion Gap 5 mmol/L (4-12); Aspartate Amino Transferase 28 U/L (14-36); Bilirubin,Total 0.3 mg/dL (0.2-1.3); Blood Urea Nitrogen 5 mg/dL (7-17); Calcium 8.7 mg/dL (8.4-10.2); Carbon Dioxide 24 mmol/L (22-30); Chloride 104 mmol/L (98-107); Estimated Glomerular Filt Rate > 60; Glucose 103 mg/dL (65-110); Potassium 3.8 mmol/L (3.4-5.0); Sodium 133 mmol/L (137-145); Total Protein 7.1 g/dL (6.3-8.2)
== END 2025-01-16 13:46 | disposition home or self-care (01) ==
LOC: ANHLAB 13:46
PROVIDERS: PCP Family Medicine; Visit Provider Nurse Practitioner Obstetrics & Gynecology
DX: O10.919 Unspecified pre-existing hypertension complicating pregnancy, unspecified trimester (principal); Z3A.00 Weeks of gestation of pregnancy not specified
CPT/HCPCS: 36415; 59025; 80053; 82570; 84156; 85025

== ENCOUNTER 2025-01-23 09:02 | Outpatient (RCR) | payer BC, SELFPAY ==
[2025-01-08 12:59] LABS: Hematocrit 31.9 % (37.0-47.0); Hemoglobin 10.0 g/dL (12.0-15.0); Immature Granulocyte Percent A 0.7 % (0-0.5); Lymphocytes Absolute Auto 1.72 K/mm3 (0.9-3.2); Mean Corpuscular HGB Conc 31.3 g/dl (32-36); Mean Corpuscular Hemoglobin 24.8 pg (26-34); Mean Corpuscular Volume 79.2 fl (80-100); Nucleated Red Blood Cells Absolute Auto 0.000 K/mm3 (0.0-0.012); Nucleated Red Blood Cells Perc 0.0 % (0.0-0.2); Platelet Count Result 312 k/mm3 (150-375); Red Blood Count 4.03 M/mm3 (4.2-5.4); White Blood Count 12.5 K/mm3 (4.5-10.0)
[2025-01-08 13:07] VITALS: BP 131/80; PULSE 81
[2025-01-08 13:17] LABS: Add Urine Microscopic? NO; Appearance Urine Clear (Clear); Glucose Urine UA Negative (Negative); Leukocyte Esterase Ur Negative LEU/UL (Negative); Nitrate Urine Negative (Negative); Specific Grav Ur 1.009 (1.001-1.035)
[2025-01-08 13:19] LABS: Alanine Aminotransferase 13 U/L (6-35); Albumin Level 3.6 g/dL (3.5-5.1); Alkaline Phosphatase 179 U/L (38-126); Anion Gap 6 mmol/L (4-12); Aspartate Amino Transferase 27 U/L (14-36); Bilirubin,Total 0.2 mg/dL (0.2-1.3); Blood Urea Nitrogen 7 mg/dL (7-17); Calcium 9.1 mg/dL (8.4-10.2); Carbon Dioxide 21 mmol/L (22-30); Chloride 105 mmol/L (98-107); Estimated Glomerular Filt Rate > 60; Glucose 87 mg/dL (65-110); Potassium 3.6 mmol/L (3.4-5.0); Sodium 132 mmol/L (137-145); Total Protein 7.0 g/dL (6.3-8.2); Uric Acid 3.1 mg/dL (2.5-7.5)
[2025-01-08 13:28] VITALS: BP 131/80; PULSE 81
[2025-01-08 13:31] LABS: Total Protein Urine Random 16 mg/dL; Ur Ttl Prot Creatinine Ratio 0.40 mg/mg (0-0.20)
--- NOTE | 2025-01-08 13:38 | PC.NURSE ---
Dr. Pelletier notified at 1337 of patients lab results, NST results, and patient's lab work. OK for patient to be discharged per Dr. Pelletier.
[2025-01-08 13:47] LABS: Syphilis IgG/IgM Antibody Non-Reactive (Nonreactive)
[2025-01-16 09:30] VITALS: BP 121/90; PULSE 88
[2025-01-23 09:49] VITALS: BP 122/84; PULSE 87
== END 2025-02-07 09:27 | disposition other institution (70) ==
LOC: ANHOBOP 09:02
PROVIDERS: PCP Family Medicine; Visit Provider Obstetrics & Gynecology
DX: O16.3 Unspecified maternal hypertension, third trimester (principal); Z3A.34 34 weeks gestation of pregnancy
CPT/HCPCS: 36415; 59025; 80053; 81003; 82570; 84156; 84550; 85025; 86593

== ENCOUNTER 2025-01-28 11:52 | Outpatient (CLI) | payer BC, SELFPAY ==
[2025-01-28] VITALS (9 sets, daily range): BP systolic 125–136; BP diastolic 84–94; PULSE 81–99; TEMP 36.8; O2SAT 97–98; BMI 32.5
[2025-01-28 12:19] LABS: Hematocrit 33.8 % (37.0-47.0); Hemoglobin 10.5 g/dL (12.0-15.0); Immature Granulocyte Percent A 0.9 % (0-0.5); Lymphocytes Absolute Auto 2.02 K/mm3 (0.9-3.2); Mean Corpuscular HGB Conc 31.1 g/dl (32-36); Mean Corpuscular Hemoglobin 23.9 pg (26-34); Mean Corpuscular Volume 76.8 fl (80-100); Nucleated Red Blood Cells Absolute Auto 0.000 K/mm3 (0.0-0.012); Nucleated Red Blood Cells Perc 0.0 % (0.0-0.2); Platelet Count Result 338 k/mm3 (150-375); Red Blood Count 4.40 M/mm3 (4.2-5.4); White Blood Count 12.5 K/mm3 (4.5-10.0)
[2025-01-28 12:22] LABS: Add Urine Microscopic? NO; Appearance Urine Clear (Clear); Glucose Urine UA Negative (Negative); Leukocyte Esterase Ur Negative LEU/UL (Negative); Nitrate Urine Negative (Negative); Specific Grav Ur 1.003 (1.001-1.035)
[2025-01-28 12:29] LABS: Total Protein Urine Random 14 mg/dL; Ur Ttl Prot Creatinine Ratio 1.51 mg/mg (0-0.20)
[2025-01-28 12:30] LABS: Alanine Aminotransferase 15 U/L (6-35); Albumin Level 3.5 g/dL (3.5-5.1); Alkaline Phosphatase 210 U/L (38-126); Anion Gap 8 mmol/L (4-12); Aspartate Amino Transferase 27 U/L (14-36); Bilirubin,Total 0.3 mg/dL (0.2-1.3); Blood Urea Nitrogen 7 mg/dL (7-17); Calcium 8.7 mg/dL (8.4-10.2); Carbon Dioxide 20 mmol/L (22-30); Chloride 105 mmol/L (98-107); Estimated CRCL calculation 140 ml/min; Estimated Glomerular Filt Rate > 60; Glucose 98 mg/dL (65-110); Potassium 4.0 mmol/L (3.4-5.0); Sodium 133 mmol/L (137-145); Total Protein 7.0 g/dL (6.3-8.2); Uric Acid 3.5 mg/dL (2.5-7.5)
--- NOTE | 2025-01-28 12:31 | PC.NURSE ---
01/28/25- 1152- Pt arrives to OB unit per Dr. Pelletier for PIH workup. Pt had an elevated BP in the office. Pt states she noticed increased swelling in her legs, hands, and face. Pt denies a headache but does feel pressure behind her eyes. Pt denies any RUQ pain. Pt denies any vaginal bleeding or leaking of fluid. Pt states she has good movement. Pt does have chronic HTN that she takes medication for and took that this AM. Pt is a . Pt denies feeling any contractions, abdomen soft to palpation.
--- NOTE | 2025-01-28 12:48 | PC.NURSE ---
1240- RN notified Dr. Pelletier of patient arrival and patient complaints. RN notified MD of patient FHT tracing with moderate variability with accelerations and no decelerations. RN also notified MD of rare contractions. RN notified MD of VS as well as labs. MD gave orders to get patient scheduled for MIOL next week and that patient can be discharged today. 1251- RN discussed plan of care with patient, patient agrees with plan of care and knows when to return if needed. RN scheduled patient for IOL, MD notified.
== END 2025-01-28 12:52 | disposition home or self-care (01) ==
LOC: ANHOBOP 11:55 → ANHLDR 11:57
PROVIDERS: PCP Family Medicine; Visit Provider Obstetrics & Gynecology
DX: O13.9 Gestational [pregnancy-induced] hypertension without significant proteinuria, unspecified trimester (principal); Z3A.00 Weeks of gestation of pregnancy not specified
CPT/HCPCS: 36415; 59025; 80053; 81003; 82570; 84156; 84550; 85025; 99199

== ENCOUNTER 2025-02-04 06:30 | Inpatient (IN) | payer BC, SELFPAY ==
[2025-02-04] VITALS (177 sets, daily range): BP systolic 109–147; BP diastolic 68–135; PULSE 59–150; TEMP 36.6; O2SAT 78–100; BMI 33.5
--- NOTE | 2025-02-04 07:15 | LDADM ---
This patient, Nadine Ramirez, was admitted to Labor/Delivery/Recovery 103 on 02/04/25 at 06:30. Plans for labor, pain management and were discussed with patient. Patient/family oriented to hospital policies and general routines including ID bracelet, bed and alarms, visiting hours, pain management, procedures, bathroom and other care routines, personal items, smoking policy, room service/diet and guest tray routines, infant security routines, and visiting hours. Patient/Family are encouraged to report perceived risks to care and to ask questions if they do not understand what they are told or what they should do. See OBIX for further documentation.
[2025-02-04 07:25] LABS: Hematocrit 34.3 % (37.0-47.0); Hemoglobin 10.7 g/dL (12.0-15.0); Immature Granulocyte Percent A 0.8 % (0-0.5); Lymphocytes Absolute Auto 2.18 K/mm3 (0.9-3.2); Mean Corpuscular HGB Conc 31.2 g/dl (32-36); Mean Corpuscular Hemoglobin 23.8 pg (26-34); Mean Corpuscular Volume 76.2 fl (80-100); Nucleated Red Blood Cells Absolute Auto 0.000 K/mm3 (0.0-0.012); Nucleated Red Blood Cells Perc 0.0 % (0.0-0.2); Platelet Count Result 323 k/mm3 (150-375); Red Blood Count 4.50 M/mm3 (4.2-5.4); White Blood Count 11.9 K/mm3 (4.5-10.0)
[2025-02-04 07:38] LABS: Alanine Aminotransferase 14 U/L (6-35); Albumin Level 3.6 g/dL (3.5-5.1); Alkaline Phosphatase 233 U/L (38-126); Anion Gap 8 mmol/L (4-12); Aspartate Amino Transferase 28 U/L (14-36); Bilirubin,Total 0.1 mg/dL (0.2-1.3); Blood Urea Nitrogen 6 mg/dL (7-17); Calcium 9.2 mg/dL (8.4-10.2); Carbon Dioxide 22 mmol/L (22-30); Chloride 104 mmol/L (98-107); Estimated CRCL calculation 135 ml/min; Estimated Glomerular Filt Rate > 60; Glucose 89 mg/dL (65-110); Potassium 3.6 mmol/L (3.4-5.0); Sodium 134 mmol/L (137-145); Total Protein 7.0 g/dL (6.3-8.2); Uric Acid 3.3 mg/dL (2.5-7.5)
[2025-02-04] MEDS: OXYTOCIN 30 UNITS/NS 500 ML 30 UNITS/500 ML BAG IV CONT (08:11)
[2025-02-04] MEDS: LACTATED RINGERS 1,000 ML 125 ML IV CONT ×3 (08:11→17:41)
--- NOTE | 2025-02-04 09:19 | PM.IMHP ---
H&P: HPI History of Present Illness Date/Time: 02/04/25 0845 Chief Complaint: Here for induction of labor. Narrative: 34 y/o at 37 6/7 weeks with CHTN and worsening bp control, here for induction of labor. Oxytocin was just started. She isn't feeling contractions yet. Review of Systems Review of Systems: All systems reviewed & are unremarkable except as noted in HPI and below PMFSH Past Medical History Medical History Chronic hypertension PIH ( induced hypertension) Surgical History Surgical History H/O cone biopsy of cervix Family History Family History Grandparent Diabetes mellitus Social History Social History Smoking status: Never smoker Alcohol intake: current Alcohol use details: RARE PRE- Substance use: never Substance use type: marijuana Other substance usage details: PRE- Lack of Transportation: No Lack of Food: Never True Current Housing: I Have Housing Concerned About Future Housing: No Difficulty Paying Gas/Electric Bills: No Difficulty Paying for Meds: No Currently Unemployed: No Education: Bachelor's Degree Difficulty w/ Childcare or Family Care: No Living arrangements: with family Spiritual care concerns: No Meds Home Medications and Allergies Home Medications ?Medication ?Instructions ?Recorded ?Confirmed ?Type aspirin 81 mg tablet 81 mg PO DAILY 10/30/24 02/04/25 History vitamins no.102-iron 90 1 cap PO DAILY 12/11/24 02/04/25 History mg-folate 1 mg-dha 200 mg capsule ferrous sulfate 325 mg (65 mg 325 mg PO DAILY 01/22/25 02/04/25 History iron) tablet nifedipine 30 mg tablet,extended 30 mg PO DAILY #30 tabs 02/02/25 02/04/25 Rx release Allergies Allergy/AdvReac Type Severity Reaction Status Date / Time No Known Allergies Allergy Verified 02/04/25 07:34 Vital Signs Vital Signs - 24 hr 02/04/25 07:12 02/04/25 07:13 02/04/25 07:15 Temperature Pulse Rate 82 92 Blood Pressure 138/90 137/88 Oxygen Delivery Room Air 02/04/25 07:30 02/04/25 07:45 02/04/25 08:01 Temperature 97.8 F Pulse Rate 102 H 92 93 Blood Pressure 142/97 H 135/92 H 130/91 H Oxygen Delivery 02/04/25 08:15 02/04/25 08:30 02/04/25 08:45 Temperature Pulse Rate 84 86 88 Blood Pressure 126/81 130/87 136/85 Oxygen Delivery 02/04/25 09:00 02/04/25 09:15 Temperature Pulse Rate 84 83 Blood Pressure 134/85 132/89 Oxygen Delivery Exam Const: Other: Well-developed, well-nourished female in no acute distress. Neck: Other: Neck: Trachea midline, no thyromegaly or masses. Resp: Other: Lungs: Normal respiratory effort. Clear to auscultation bilaterally. Cardio: Other: Heart: Regular rate and rhythm with normal S1-S2. GI: Other: ABD: Soft, nontender, nondistended, gravid. No guarding or rebound tenderness. No hepatosplenomegaly. NST reactive. TOCO: no contractions yet. : Other: Cervix: 2-3/80/-2. AROM with clear fluid. Vertex. Back/Spine/Pelvis: Other: Back: No CVA tenderness. Skin: Other: Skin: No lesions, rashes or ulcers noted. Extrem: Other: Extremities: nontender with no edema Psych: Other: Mental status grossly normal, with normal mood and affect. H&P: Results Labs Labs: Short CBC 02/04/25 Range/Units 06:58 WBC 11.9 H (4.5-10.0) K/mm3 Hgb 10.7 L (12.0-15.0) g/dL Hct 34.3 L (37.0-47.0) % Plt Count 323 (150-375) k/mm3 BMP 02/04/25 06:58 Sodium 134 L Potassium 3.6 Chloride 104 Carbon Dioxide 22 BUN 6 L Creatinine 0.52 L Glucose 89 Calcium 9.2 Liver Function 02/04/25 Range/Units 06:58 Total Bilirubin 0.1 L (0.2-1.3) mg/dL AST 28 (14-36) U/L ALT 14 (6-35) U/L Alkaline Phosphatase 233 H (38-126) U/L Albumin 3.6 (3.5-5.1) g/dL Assessment and Plan Assessment and plan (1) Chronic hypertension affecting : Code(s): O10.919 - Unspecified pre-existing hypertension complicating , unspecified trimester Status: Acute Assessment and Plan: A: IUP at 37 6/7 weeks with CHTN, worsening bp control, here for induction of labor. P: We reviewed risks and benefits associated with induction of labor, including risks associated with prematurity. She elects to proceed. (2) : Qualifiers: Weeks of gestation: 36 weeks Qualified Code(s): Z3A.36 - 36 weeks gestation of Code(s): Z34.90 - Encounter for supervision of normal , unspecified, unspecified trimester Status: Acute
[2025-02-04 09:56] LABS: Syphilis IgG/IgM Antibody Non-Reactive (Nonreactive)
--- NOTE | 2025-02-04 13:01 | PM.OBPNLAB ---
Pain Control Date/time seen: 02/04/25 13:01 Starting to feel some contractions. Pelvic Exam Dilation (cm): 3 Effacement (%): 80 station: -2 Contractions Contraction pattern: Irregular Status status: Category l Comments: IUPC placed Assessment and Plan Pitocin rate (mU/min): 12 Comments: Continue labor
--- NOTE | 2025-02-04 15:38 | WPDANESEPPF ---
Anes - Initial Pre Proc Eval Procedure: labor epidural Date/Time: 02/04/25 15:38 Surgeon: Pan Pelletier MD Pre Op Diagnosis: labor pain Pre Op Diagnosis: IOL Patient Data Age: 34 Gender: F Height: 1.63 m Weight: 88.5 kg Last Vital Signs Temp 36.6 C 02/04/25 13:46 Pulse 89 02/04/25 15:00 BP 135/92 H 02/04/25 15:00 Pulse Ox 100 02/04/25 15:34 O2 Del Method Room Air 02/04/25 07:13 Allergies Allergy/AdvReac Type Severity Reaction Status Date / Time No Known Allergies Allergy Verified 02/04/25 07:34 Home Medications ?Medication ?Instructions ?Recorded ?Confirmed ?Type aspirin 81 mg tablet 81 mg PO DAILY 10/30/24 02/04/25 History vitamins no.102-iron 90 1 cap PO DAILY 12/11/24 02/04/25 History mg-folate 1 mg-dha 200 mg capsule ferrous sulfate 325 mg (65 mg 325 mg PO DAILY 01/22/25 02/04/25 History iron) tablet nifedipine 30 mg tablet,extended 30 mg PO DAILY #30 tabs 02/02/25 02/04/25 Rx release Laboratory Tests 02/04/25 06:58 WBC 11.9 H K/mm3 (4.5-10.0) RBC 4.50 M/mm3 (4.2-5.4) Hgb 10.7 L g/dL (12.0-15.0) Hct 34.3 L % (37.0-47.0) MCV 76.2 L fl (80-100) MCH 23.8 L pg (26-34) MCHC 31.2 L g/dl (32-36) RDW 16.4 H % (11.5-14.5) Plt Count 323 k/mm3 (150-375) MPV 10.0 fl (7.4-10.4) Immature Gran % (Auto) 0.8 H % (0-0.5) Neut % (Auto) 70.7 % (45.5-73.1) Lymph % (Auto) 18.3 % (18.3-44.2) [place] % (Auto) 7.7 % (2.6-8.5) Eos % (Auto) 2.2 % (0-4.4) Baso % (Auto) 0.3 % (0.2-1.2) Lymph # (Auto) 2.18 K/mm3 (0.9-3.2) [place] # (Auto) 0.9 H K/mm3 (0.1-0.6) Eos # (Auto) 0.3 K/mm3 (0-0.3) Baso # (Auto) 0.0 K/mm3 (0.0-0.1) Abs Immat Gran (auto) 0.10 H K/mm3 (0.00-0.031) Absolute Neuts (auto) 8.4 H K/mm3 (1.3-6.7) Absolute Nucleated RBC 0.000 K/mm3 (0.0-0.012) Nucleated RBC % 0.0 % (0.0-0.2) Sodium 134 L mmol/L (137-145) Potassium 3.6 mmol/L (3.4-5.0) Chloride 104 mmol/L (98-107) Carbon Dioxide 22 mmol/L (22-30) Anion Gap 8 mmol/L (4-12) BUN 6 L mg/dL (7-17) Creatinine 0.52 L mg/dL (0.7-1.0) Estim Creat Clear Calc 135 ml/min Estimated GFR > 60 (59 - ) Glucose 89 mg/dL (65-110) Uric Acid 3.3 mg/dL (2.5-7.5) Calcium 9.2 mg/dL (8.4-10.2) Total Bilirubin 0.1 L mg/dL (0.2-1.3) AST 28 U/L (14-36) ALT 14 U/L (6-35) Alkaline Phosphatase 233 H U/L (38-126) Total Protein 7.0 g/dL (6.3-8.2) Albumin 3.6 g/dL (3.5-5.1) Syphilis IgG/IgM Ab Non-reactive (Nonreactive) Blood Type AB Positive Antibody Screen Negative Patient hx anesthesia problems: none Family hx anesthesia problems: none Results Review: All pre-operative results and documents have been reviewed as part of the pre-operative evaluation. [facility] Past Medical History Medical History Chronic hypertension PIH ( induced hypertension) Surgical History Surgical History H/O cone biopsy of cervix Family History Family History Grandparent Diabetes mellitus Social History Social History Smoking status: Never smoker Alcohol intake: current Alcohol use details: RARE PRE- Substance use: never Substance use type: marijuana Other substance usage details: PRE- Lack of Transportation: No Lack of Food: Never True Current Housing: I Have Housing Concerned About Future Housing: No Difficulty Paying Gas/Electric Bills: No Difficulty Paying for Meds: No Currently Unemployed: No Education: Bachelor's Degree Difficulty w/ Childcare or Family Care: No Living arrangements: with family Spiritual care concerns: No Anes - Eval Final PreProcedure Day of Procedure 02/04/25 15:38 Patient weight: obese Heart: regular rate and rhythm Lungs: clear to auscultation and normal air movement Airway: Mallampati scale class II Neurological: alert and oriented ASA classification: III Emergent: no Anesthetic plan: proceed Anesthesia type and monitoring: regional epidural and standard monitoring Results Review: All pre-operative results and documents have been reviewed as part of the pre-operative evaluation. Informed Consent: The patient's anesthetic plan and its attendant risks and benefits were discussed with the patient/family/POA. Questions were solicited and answers provided to the satisfaction of the patient/family/POA.
--- NOTE | 2025-02-04 17:06 | PM.OBPNLAB ---
Pain Control Date/time seen: 02/04/25 17:06 Comments: Comfortable with epidural. Pelvic Exam Dilation (cm): 4 Effacement (%): 80 station: -2 Contractions Contraction frequency: 3 Contraction pattern: Regular Status status: Category l Comments: Contractions still inadequate. Assessment and Plan Pitocin rate (mU/min): 16 Comments: Continue labor.
[2025-02-04] MEDS: SODIUM CHLORIDE 0.9% IV 300 ML 600 ML I-UTERINE (18:30)
[2025-02-04] MEDS: ONDANSETRON INJ 4 MG/2 ML VIAL IV PUSH (23:52)
[2025-02-05] VITALS (192 sets, daily range): BP systolic 107–158; BP diastolic 65–108; PULSE 69–137; RESP 15–16; TEMP 36.5–37.6; O2SAT 70–100
[2025-02-05] MEDS: LACTATED RINGERS 1,000 ML 125 ML IV CONT (01:41)
[2025-02-05] MEDS: CALCIUM CARBONATE (TUMS) 500 MG (200 MG ELEMENTAL) PO (02:20)
[2025-02-05] MEDS: AMPICILLIN SODIUM 2 GM in SODIUM CHLORIDE 0.9% IV 100 ML 200 ML IVPB (02:20)
[2025-02-05] MEDS: FAMOTIDINE 20 MG/2 ML VIAL IV PUSH (02:20)
[2025-02-05] MEDS: OXYTOCIN 30 UNITS/NS 500 ML 30 UNITS/500 ML BAG IV CONT (05:20)
[2025-02-05] MEDS: AMPICILLIN SODIUM 1 GM in SODIUM CHLORIDE 0.9% IV 50 ML 100 ML IVPB (06:14)
--- NOTE | 2025-02-05 09:33 | PM.OBPNLAB ---
Pain Control Date/time seen: 02/05/25 [id number] Comments: Comfortable Pelvic Exam Dilation (cm): 7 Effacement (%): 80 station: -1 Contractions Contraction frequency: 3 Contraction pattern: Regular Status status: Category l Assessment and Plan Comments: Continue labor
--- NOTE | 2025-02-05 10:41 | S_PTH ---
PATIENT: Nadine Ramirez LOC: [facility] U#:[id number] AGE/SX: 34/F ROOM: 285 RE02/04/[address]: Pan Pelletier MD : 1990 BED: 00 DIS: 02/07/2025 SPEC #: [id number] RECD: 02/05/25 11:36 STATUS: PRINCE REQ #: [id number] WADE: 02/05/25 10:[address]: Pan Pelletier DEPT: [facility] Surgical RECD BY: Radha Smith ENTERED: 02/05/25 11:36 SP TYPE: Surgical OTHR DR: Sade MunozMD Tissues: A - Placenta Procedures: Hematoxylin and Eosin Stain Gross and Microscopic Level 5
--- NOTE | 2025-02-05 10:53 | PM.OBPRVD ---
OB - Vaginal Delivery Note Procedure Delivery date: 02/05/25 Events: Chronic Hypertension Induction method: Per Pitocin Protocol Delivery augmentation: Rupture of Membranes Delivery monitor: External FHT, External Uterine and Internal Uterine Route of delivery: Episiotomy description: None Laceration Description: Periurethral Delivery repair: vicryl (3-0) Specimen: Yes (Cord blood, placenta) Quantitative Blood Loss (ml): 350 Anesthesia type: Epidural Disposition: PACU Complications: None Narrative: 34 y/o at 38 weeks gestation who presented to the hospital for induction of labor. Oxytocin was administered intravenously. Amniotomy was performed with return of clear fluid. She received an epidural for pain control. Her labor progressed and her cervix dilated completely. She pushed with good effort and delivered the infant's head to the perineum. A loose nuchal cord was reduced and the body delivered. The nose and mouth were bulb suctioned. After a delay, the cord was clamped and cut. The infant was handed off the field. Cord blood was collected. The placenta delivered spontaneously and was grossly normal in appearance. The usual 3 vessel cord was noted. A shallow right-sided periurethral laceration was repaired using 3-0 Vicryl in interrupted figure of eight fashion. A hymenal tag was excised at the vaginal introitus posteriorly and repaired with two interrupted sutures of the same material. Excellent hemostasis resulted as did excellent reapproximation of the normal anatomy. Needle and instrument counts were correct. The patient was taken to recovery room in stable condition. The infant went to the nursery in stable condition. I was present and scrubbed for the entire delivery. Baby Date of : 02/05/25 Time of : 10:38 Gestational Age by Date: 38 Infant gender: Male Weight (pounds): 6 Weight (ounces): 13 presentation: vertex position: Left Occiput Anterior Placenta delivery description: Spontaneous and Normal Configuration Cord Vessel Description: 3 Vessels, Nuchal Cord and Delayed Cord Clamping score one minute: 6 score five minutes: 8
[2025-02-05] MEDS: BENZOCAINE 20% AER SPR (*SP) 56 GM CAN 1 SPRAY TOPICAL (13:25)
[2025-02-05] MEDS: WITCH HAZEL 40 PADS 1 PAD TOPICAL (13:25)
[2025-02-05] MEDS: ACETAMINOPHEN 325 MG TABLET 650 MG PO ×2 (13:56→20:00)
[2025-02-05] MEDS: IBUPROFEN 600 MG TABLET PO ×2 (13:57→20:00)
--- NOTE | 2025-02-05 14:12 | OBPPTRN ---
Patient transferred to post room #285. Support person present. Oriented to unit, room, information board, rooming in, admission packet and security measures. Patient verbalizes understanding.
[2025-02-05] MEDS: HYDROcodone/acetaminophen (*CRX) 5-325 MG TABLET 1 TAB (14:50)
--- NOTE | 2025-02-05 15:00 | PC.NURSE ---
1445- This RN called Dr. Pelletier's office to obtain order for [place] for pts severe cramping. Order received from Dr. Pelletier- [id number] po q4 hours prn.
--- NOTE | 2025-02-05 17:44 | PM.OBDSVD ---
DS: Admitting Diagnosis Discharge Date 02/06/25 Admitting Diagnosis IUP at 38 weeks TN with worsening bp control DS: Discharge Diagnosis Discharge Diagnosis (1) (normal spontaneous vaginal delivery): Code(s): O80 - Encounter for full-term uncomplicated delivery Status: Acute (2) Chronic hypertension: Code(s): I10 - Essential (primary) hypertension Status: Chronic OB - DS: Summary OB Procedures : PIH Mgmt OB Procedures Intrapartum: Spontaneous Vag Delivery OB Procedures: : None Peripartum Data Laceration Description: Periurethral Episiotomy description: None Time Spent with Patient Time attestation: Total time spent providing and/or coordinating discharge services: DS: Data Data Completed and Pending Pending studies at discharge: Pending at discharge 02/05/25 10:41 Surgical [PTH] Routine Discharge Plan Discharge Attending physician on discharge: Pan Pelletier Discharging Clinician: Pan Pelletier Patient Disposition: Home Activity: pelvic rest Diet: regular Discharge Instructions: Call or return if temperature above 100.4? F, increased abdominal pain, increased vaginal bleeding or any new problems. Patient Language: Greek Stand Alone Forms: General Discharge Information Follow-up/Referrals: Pan Pelletier MD [Physician, [employer] [facility]] - 6 Weeks Discharge Medications: New ibuprofen 600 mg tablet 600 mg PO Q6H PRN (Reason: cramps) Qty: 30 0RF Continued ferrous sulfate 325 mg (65 mg iron) tablet 325 mg PO DAILY PNV [id number] 90 mg iron- 1 mg-200 mg capsule 1 cap PO DAILY nifedipine 30 mg tablet extended release 30 mg PO DAILY Qty: 30 0RF Discontinued aspirin 81 mg tablet 81 mg PO DAILY Date of admission: 02/04/25 06:30 Primary Care Provider: Alexander,Sade Mena Admitting Provider: Pan Pelletier Attending physician on admission: Pan Pelletier Condition: Stable
[2025-02-05] MEDS: HYDROcodone/acetaminophen (*CRX) 5-325 MG TABLET 1 TAB PO (20:50)
[2025-02-06] MEDS: ACETAMINOPHEN 325 MG TABLET 650 MG PO ×2 (01:54→14:29)
[2025-02-06] MEDS: IBUPROFEN 600 MG TABLET PO ×2 (01:54→14:30)
[2025-02-06] MEDS: HYDROcodone/acetaminophen (*CRX) 5-325 MG TABLET 1 TAB PO ×4 (02:50→22:00)
[2025-02-06 04:10] VITALS: BP 118/85; PULSE 71; RESP 16; TEMP 36.4; O2SAT 100
[2025-02-06 04:41] LABS: Hematocrit 27.7 % (37.0-47.0); Hemoglobin 8.5 g/dL (12.0-15.0)
[2025-02-06 07:30] VITALS: BP 128/82; PULSE 105; RESP 16; TEMP 37; O2SAT 98
[2025-02-06] MEDS: MULTIVIT/MIN/PREN/FOL AC/IRON TABLET 1 TAB PO (08:53)
--- NOTE | 2025-02-06 08:59 | P.PNOB_ITS ---
OB - PN: Subj Subjective Date/time seen: 02/06/25 08:59 Narrative: Pain OK. Would like to go home. Also would like circumcision for son. OB - PN: Obj Data Labs 02/06/25 04:20 02/04/25 06:58 Labs: Laboratory Results - last 24 hr 02/06/25 04:20 Hgb 8.5 L Hct 27.7 L OB - PN A/P Plan day: 1 Comments: A: PPD#1, doing well. P: Reviewed circ. Home to f/u 6 weeks. Exam 2 Psych: Other: AVSS ABD soft, nontender, fundus firm EXT nontender
--- NOTE | 2025-02-06 09:30 | PC.NURSE ---
Consulted with mother concerning needs and she shared her ability to independently latch infant optimally without pain. Mother is feeding appropriately for growth of and understands stimulating to eat if needed. Infant has had appropriate feedings in the last 24 hours meets the outcomes for weight, output, blood sugar and jaundice at this time. Reinforced understanding of milk production, transition of milk, signs of adequate intake, transition of stool, prevention/relief of engorgement, plugged ducts, mastitis, responsive watching for feeding cues, community resources, and when to call a provider using the resource of the feeding sheet along with the mom and baby guide. Mother voiced understanding of the information shared, is confident to continue effectively her at home, when to call for assistance, denies any additional assistance or education at this time. Reported to the Primary RN.
--- NOTE | 2025-02-06 14:46 | WPDANLDPN2 ---
Anes-Prog Note L&D Date/Time: 02/06/25 14:46 Comfortable throughout: labor and delivery Neuraxial method: epidural Epidural/Spinal procedure site: clean & non-tender Neuro status: Neuro function grossly intact. Vital Signs: Last Vital Signs Temp 37.0 C 02/06/25 07:30 Pulse 105 H 02/06/25 07:30 Resp 16 02/06/25 07:30 BP 128/82 02/06/25 07:30 Pulse Ox 98 02/06/25 07:30 O2 Del Method Room Air 02/05/25 23:30 Pain score (VAS): 0 I/O: Intake & Output 02/05/25 02/06/25 02/06/25 23:59 07:59 15:59 Intake Total 300 Balance 300 Patient feedback: Patient satisfied with anesthetic care.
[2025-02-06] MEDS: WITCH HAZEL 40 PADS 1 PAD TOPICAL (17:08)
[2025-02-06 19:49] VITALS: BP 123/83; PULSE 71; RESP 18; TEMP 37; O2SAT 97
[2025-02-06 23:46] VITALS: BP 126/80; PULSE 68; RESP 18; TEMP 37.2; O2SAT 99
[2025-02-07 03:43] VITALS: BP 118/75; PULSE 66; RESP 18; TEMP 36.6; O2SAT 97
[2025-02-07] MEDS: HYDROcodone/acetaminophen (*CRX) 5-325 MG TABLET 1 TAB PO (03:50)
[2025-02-07 08:01] VITALS: BP 131/82; PULSE 73; RESP 14; TEMP 36.8; O2SAT 97
--- NOTE | 2025-02-07 08:09 | PC.NURSE ---
Mother verbalizes she is able to independently latch with appropriate positioning and alignment. She denies any nipple discomfort and is responsively . Infant is currently meeting outcomes for weight, output, jaundice, blood sugar and feeding frequencies of 8-12 times in 24 hours. Mother declines any additional assistance or education at this time. Mother is encouraged to call for assistance if her infant doesn?t latch, pain with latching, questions or concerns. Mother voiced understanding of information shared along with the mom/baby guide for an additional resource. Reported to the Primary RN.
[2025-02-07] MEDS: DOCUSATE SODIUM 100 MG CAPSULE PO (08:20)
[2025-02-07] MEDS: ACETAMINOPHEN 325 MG TABLET 650 MG PO (08:20)
[2025-02-07] MEDS: MULTIVIT/MIN/PREN/FOL AC/IRON TABLET 1 TAB PO (08:20)
[2025-02-07] MEDS: IBUPROFEN 600 MG TABLET PO (08:24)
--- NOTE | 2025-02-07 11:25 | P.PNOB_ITS ---
OB - PN: Subj Subjective Date/time seen: 02/07/25 11:25 Narrative: Pain OK. Would like to go home. OB - PN: Obj Data Labs 02/06/25 04:20 02/04/25 06:58 OB - PN A/P Plan day: 2 Comments: A: PPD#2, doing well. P: Home to f/u 6 weeks. Exam 2 Psych: Other: AVSS ABD soft, nontender, fundus firm EXT nontender
[2025-02-10 11:09] VITALS: BP 144/100; PULSE 87; RESP 18; TEMP 36.8; O2SAT 100
== END 2025-02-07 12:02 | disposition home or self-care (01) | DRG 807 ==
LOC: ANHLDR 06:33 → ANHOB2 02-05 13:40
PROVIDERS: Admitting Provider Obstetrics & Gynecology; PCP Family Medicine; Visit Provider Obstetrics & Gynecology
DX: O10.92 Unspecified pre-existing hypertension complicating childbirth (principal); Z37.0 Single live birth; Z3A.38 38 weeks gestation of pregnancy; O69.81X0 Labor and delivery complicated by cord around neck, without compression, not applicable or unspecified; O42.02 Full-term premature rupture of membranes, onset of labor within 24 hours of rupture; O71.82 Other specified trauma to perineum and vulva
CPT/HCPCS: 36415; 80053; 84550; 85014; 85018; 85025; 86593; 86850; 86900; 86901; 88307; A9270; J0290; J2405; J2590; J2795; J7030; J7120